=== PATIENT | female | born 1940 | race Caucasian/White ===

== ENCOUNTER → 2016-11-17 | Outpatient (CLI) | payer OTHER | LOC: HEART CORB 11:00 | DX: I10 Essential (primary) hypertension (principal); Z87.891 Personal history of nicotine dependence | CPT/HCPCS: 93306 ==

== ENCOUNTER → 2020-12-11 | Outpatient (CLI) | payer MEDICARE | LOC: HEART 5 11:23 | DX: R06.02 Shortness of breath (principal); J45.30 Mild persistent asthma, uncomplicated | CPT/HCPCS: 94060 ==